=== PATIENT | female | born 1945 | race Caucasian/White ===

== ENCOUNTER → 2016-12-12 | Outpatient (CLI) | payer MEDICARE, BC ==
--- NOTE | 2016-12-12 17:25 | RADRPT ---
PROCEDURE: XR Knees. CLINICAL INDICATION: Bilateral knee pain. Postop. TECHNIQUE: Total of six views. Frontal, oblique, and lateral views of both knees. COMPARISON: 12/26/2012. FINDINGS: There are bilateral total knee arthroplasties. These appear satisfactory with no fracture, dislocat ion, or loosening. There is no joint effusion. There is no lytic or blastic lesion. IMPRESSION: 1. Satisfactory postoperative appearance of both knees. RPTAT: QQ .Dave Leon MD, MD Date Time Electronically viewed and signed by .Dave Leon MD, MD on 12/12/2016 17:25 .R/
== END | disposition home or self-care (01) ==
LOC: HKI 08:46
PROVIDERS: ATTEND Orthopaedic Surgery
DX: M25.562 Pain in left knee (principal); T84.84XA Pain due to internal orthopedic prosthetic devices, implants and grafts, initial encounter; Z96.653 Presence of artificial knee joint, bilateral
CPT/HCPCS: 73562; G0463